=== PATIENT | female | born 1970 | race Caucasian/White ===

== ENCOUNTER → 2016-11-25 | Outpatient (CLI) | payer OTHER | LOC: FIMAGING 09:20 | DX: Z12.31 Encounter for screening mammogram for malignant neoplasm of breast (principal) | CPT/HCPCS: G0202 ==

== ENCOUNTER → 2017-01-17 | Outpatient (CLI) | payer OTHER | LOC: FIMAGING 11:00 | PROVIDERS: ATTEND Obstetrics & Gynecology | DX: N91.2 Amenorrhea, unspecified (principal); Z83.71 Family history of colonic polyps ==

== ENCOUNTER → 2017-06-26 | Outpatient (CLI) | payer OTHER | LOC: BMCIMAGING 17:13 | PROVIDERS: ATTEND Family Medicine | DX: S99.921A Unspecified injury of right foot, initial encounter (principal); M20.11 Hallux valgus (acquired), right foot ==

== ENCOUNTER 2017-10-07 10:18 | Emergency (ER) | payer OTHER ==
[2017-10-07] MEDS ORDERED: ASPIRIN 81 MG CHEWABLE TAB PO ONE (10:47)
[2017-10-07] MEDS ORDERED: NS 500 ML IV ONE (10:47)
[2017-10-07 10:57] LABS: PLATELET COUNT 212 10^3/uL (150-400)
[2017-10-07 11:06] LABS: CREATINE KINASE 124 IU/L (0-156); INR 0.93 (0.83-1.16); PROTIME(PATIENT) 12.7 SEC (12.0-15.0)
--- NOTE | 2017-10-07 11:32 | CPEKG ---
Heart Rate: 60 RR Interval: 1000 P-R Interval: 156 QRSD Interval: 94 QT Interval: 416 QTC Interval: 416 P [place]: 71 QRS [place]: 115 T Wave [place]: 38 EKG Severity - ABNORMAL ECG - EKG Impression: SINUS RHYTHM EKG Impression: LEFT POSTERIOR FASCICULAR BLOCK EKG Impression: LOW VOLTAGE THROUGHOUT Electronically Signed By: Michael Martini 07-Oct-2017 15:30:22
[2017-10-07 11:56] VITALS: RESP 16; O2SAT 95
--- NOTE | 2017-10-07 12:33 | EDPHY ---
H & P Time Seen by Provider: 10/07/17 10:42 HPI/ROS: HPI Chest discomfort. 47-year-old female by private vehicle. This patient reports that last week she developed an upper respiratory infection with a dry intermittent productive cough. She reports that this got better. She reports however that 2 days ago she developed discomfort in her chest. She states that this is mid chest slightly on the left side. She describes it as an aching pain. It is worse when she coughs and when she takes a deep breath. She denies any significant past medical history. There is no radiation of the pain. She has not been running a fever. Her upper respiratory infection symptoms have resolved. No cardiac risk factors. ROS: Constitutional: No fever, no chills. No weakness. Eyes: No discharge. No changes in vision. ENT: No sore throat. No nasal congestion or rhinorrhea. Respiratory: No cough. No shortness of breath. Cardiac: As above, no palpitations. Gastrointestinal: No abdominal pain, no vomiting, no diarrhea. Genitourinary: No hematuria. No dysuria or increased frequency with urination. Musculoskeletal: No back pain. No neck pain. No myalgias or arthralgias. Skin: No rashes. Neurological: No headache. No focal weakness or altered sensation. Past medical history: She denies any significant past medical history. No prescription medications. Social history: Nonsmoker, , here by herself currently. Physical Exam: General Appearance: Alert, no distress. This patient is responding to questions appropriately and in full sentences. This patient appears well- hydrated and well-nourished. Eyes: Pupils equal and round no pallor or injection. No lid edema, erythema or injection. Respiratory: There are no retractions, lungs are clear to auscultation with good air movement bilaterally. Cardiovascular: Regular rate and rhythm. No murmur. Gastrointestinal: Abdomen is soft and nontender, no masses, bowel sounds normal. No focal tenderness at McBurney's point. No Lozano sign. Neurological: Motor sensory function is grossly intact. Cranial nerves are normal. Gait is normal. Skin: Warm and dry, no rashes. Musculoskeletal: Neck is supple and nontender. Extremities are symmetrical. All joints range without pain or impingement. Psychiatric: No agitation. No depression. Database: EKG: EKG time is 10:44 a.m.; EKG shows a narrow complex normal sinus rhythm with a ventricular rate of 60. The [place], QRS, QT intervals are within normal limits. There are no ST-T wave changes indicative of ischemic or injury pattern. No evidence of right heart strain. Interpreted by me. Imaging: Chest x-ray AP portable; mild airway disease, no infiltrate. The cardiac mediastinal silhouette is unremarkable. No pneumothorax. Interpreted by me. Procedures: Emergency department course: Vital signs reviewed, patient mildly hyper intensive. Afebrile. EKG obtained and reviewed by myself. Patient given 324 mg of chewed aspirin. 12:30 p.m., patient re-evaluated. Resting comfortably at this time. No chest pain. Discussed results of emergency department workup. Discussed admission for further evaluation and observation. She initially declines this. She wants to talk it over with her . Risks of declining admission explained. In my professional opinion she understands these risks. The patient competently engages in shared decision making. They demonstrate capacitance to make decisions. 12:50 p.m., patient re-evaluated. She still wants to go home. I will have her follow up with her cardiology group within the next 2-3 days. This was discussed with her in detail. Return to emergency department precautions were reviewed with her in detail. All of her questions were answered. She was discharged in good condition. Differential Diagnosis: The differential diagnosis on this patient includes but is not limited to pleurisy, costal chondritis, bronchitis. Acute coronary syndrome, pulmonary embolism, aortic dissection, pericarditis, myocarditis unlikely. This represents a partial list of diagnoses considered. These considerations are based on history, physical exam, past history, reassessment and diagnostic testing. Smoking Status: Never smoked Constitutional: Initial Vital Signs Temperature (C) 36.8 C 10/07/17 10:32 Heart Rate 78 10/07/17 10:32 Respiratory Rate 18 10/07/17 10:32 Blood Pressure 140/79 H 10/07/17 10:32 O2 Sat (%) 96 10/07/17 10:32 O2 Delivery Mode Room Air Allergies/Adverse Reactions: amoxicillin [From Augmentin] Allergy (Verified 10/07/17 10:31) clavulanic acid [From Augmentin] Allergy (Verified 10/07/17 10:31) Home Medications: Medication Instructions Recorded NK [No Known Home Meds] 10/07/17 Medical Decision Making - Data Points Laboratory Results: Laboratory Results 10/07/17 10:50 10/07/17 10:50 Medications Given: Discontinued Medications Aspirin (Aspirin) 324 mg PO EDNOW ONE Stop: 10/07/17 10:48 Last Admin: 10/07/17 10:59 Dose: 324 mg Sodium Chloride (Ns) 500 mls @ 1,000 mls/hr IV EDNOW ONE PRN Reason: Protocol Stop: 10/07/17 11:16 Last Admin: 10/07/17 10:59 Dose: 500 mls Departure - Departure Disposition: Home, Routine, Self-Care Clinical Impression: Chest discomfort Condition: Good Instructions: Chest Pain (ED) Additional Instructions: Read and follow provided instructions. Follow-up with our cardiology group, Dr. Eric Damon, or 1 of his partners within the next 2-3 days for for re-evaluation, repeat EKG and a stress test. Call their office this afternoon or tomorrow morning for appointment time. No strenuous activity until you have been cleared by Cardiology. Return to the emergency department for worsening chest pain, shortness of breath or other serious concerns. Referrals: Eric Damon MD [Medical Doctor] - As per Instructions
[2017-10-07 13:18] VITALS: BP 119/70; PULSE 69; TEMP 98.6
== END 2017-10-07 13:17 | disposition home or self-care (01) ==
DX: R07.89 Other chest pain (principal); E86.9 Volume depletion, unspecified

== ENCOUNTER → 2017-12-18 | Outpatient (CLI) | payer OTHER | LOC: FIMAGING 09:12 | PROVIDERS: ATTEND Family Medicine | DX: Z12.31 Encounter for screening mammogram for malignant neoplasm of breast (principal) ==

== ENCOUNTER → 2017-12-31 | Outpatient (CLI) | payer OTHER | LOC: FIMAGING 11:59 | PROVIDERS: ATTEND Family Medicine | DX: R92.2 Inconclusive mammogram (principal) ==